=== PATIENT | male | born 1965 | race Caucasian/White ===

== ENCOUNTER 2021-08-26 23:35 | Observation (INO) | payer BC ==
[~2021-08-26] VITALS: Ht 182.9 cm; Wt 92.5 kg
[2021-08-26 23:56] LABS: BASO % 0 % (0-3); EOS # 0.1 x10^3/uL (0.0-0.7); EOS % 1 % (0-3); HEMATOCRIT 41.7 % (39.0-53.0); HEMOGLOBIN 14.2 g/dL (13.0-17.5); LYMPH # 1.7 x10^3/uL (1.0-4.8); LYMPH % 14 % (24-48); MEAN CORPUSCULAR HEMOGLOBIN 31 pg (25-35); MEAN CORPUSCULAR HGB CONC 34 g/dL (31-37); MEAN CORPUSCULAR VOLUME 91 fL (79-100); MONO # 0.8 x10^3/uL (0.0-1.1); MONO % 7 % (0-9); NEUT # 9.6 x10^3/uL (1.8-7.7); NEUT % 78 % (31-73); PLATELET COUNT 228 x10^3/uL (140-400); RED BLOOD COUNT 4.57 x10^6/uL (4.30-5.70); RED CELL DISTRIBUTION WIDTH 12.6 % (11.5-14.5); WHITE BLOOD COUNT 12.3 x10^3/uL (4.0-11.0)
[2021-08-27] VITALS (7 sets, daily range): BP systolic 103–148; BP diastolic 57–78
[2021-08-27] MEDS ORDERED: IV NORMAL SALINE 1000ML BAG 1,000 ML IV ONE
[2021-08-27] MEDS ORDERED: fentaNYL PF VIAL 100 MCG/2 ML VIAL IVP ONE
[2021-08-27] MEDS ORDERED: ONDANSETRON PF 4 MG/2 ML VIAL. IVP ONE
[2021-08-27 00:04] LABS: CALCIUM 8.3 mg/dL (8.5-10.1); CREATININE 1.2 mg/dL (0.7-1.3); GFR 62.9; POTASSIUM 3.4 mmol/L (3.5-5.1)
[2021-08-27 00:05] LABS: PROTHROMBIN TIME PATIENT 12.9 SEC (11.7-14.0)
[2021-08-27 00:11] LABS: ALBUMIN 3.4 g/dL (3.4-5.0); ALBUMIN/GLOBULIN RATIO 0.8 (1.0-1.7); TOTAL BILIRUBIN 0.4 mg/dL (0.2-1.0); TOTAL PROTEIN 7.6 g/dL (6.4-8.2)
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
[2021-08-27] MEDS ORDERED: CONTRAST GIVEN. MC PRN (00:30)
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
[2021-08-27] MEDS ORDERED: IOHEXOL 300 MG/ML 100ML VIAL. IV ONE (01:00)
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
[2021-08-27] MEDS ORDERED: ONDANSETRON PF 4 MG/2 ML VIAL. IVP PRN (01:30)
[2021-08-27] MEDS: IV NORMAL SALINE 1000ML BAG 1,000 ML IV SCH ×4 (04:40→22:03)
[2021-08-27] MEDS: MORPHINE SULFATE 2 MG/ML INJ. IVP PRN ×2 (07:30→11:35)
[2021-08-27] MEDS ORDERED: OMEP20CA16 PO (07:49)
--- NOTE | 2021-08-27 08:39 | PDOC2 ---
CONSULT Date of Consult Date of Consult DATE: 08/27/21 TIME: 08:33 Reason for Consult Reason for Consult: s/p [facility] [place] Referring Physician Referring Physician: Dr. Tapia Identification/Chief Complaint Chief Complaint left chest pain Source Source: Chart review, Patient History of Present Illness Reason for Visit: 56 yo M s/p [facility] [place]. Admitted for observation. C/o left chest pain. Past Medical History Psych: Addictions Past Surgical History Past Surgical History: No pertinent history Family History Family History: No Significant Social History ALCOHOL: heavy Current Problem List Problem List Problems Medical Problems: (1) Acute encephalopathy Status: Acute (2) Alcohol abuse Status: Acute (3) Contusion of rib on left side Status: Acute (4) Multiple abrasions Status: Acute (5) Pancreatitis Status: Acute Current Medications Current Medications Current Medications Ondansetron HCl (Zofran) 4 mg 1X ONCE IVP Last administered on 08/26/21at 23:52; Start 08/27/21 at 00:00; Stop 08/27/21 at 00:01; Status DC Sodium Chloride 1,000 ml @ 1,000 mls/hr 1X ONCE IV Last administered on 08/26/21at 23:51; Start 08/27/21 at 00:00; Stop 08/27/21 at 00:59; Status DC Fentanyl Citrate (Fentanyl 2ml Vial) 75 mcg 1X ONCE IVP Last administered on 08/26/21at 23:52; Start 08/27/21 at 00:00; Stop 08/27/21 at 00:01; Status DC Iohexol (Omnipaque 300 Mg/ml) 75 ml 1X ONCE IV ; Start 08/27/21 at 01:00; Stop 08/27/21 at 01:01; Status DC Info (CONTRAST GIVEN -- Rx MONITORING) 1 each PRN DAILY PRN MC SEE COMMENTS; Start 08/27/21 at 00:30; Stop 08/29/21 at 00:29 Ondansetron HCl (Zofran) 4 mg PRN Q8HRS PRN IVP NAUSEA/VOMITING 1ST CHOICE Last administered on 08/27/21at 07:30; Start 08/27/21 at 01:30; Stop 08/28/21 at 01:29 Morphine Sulfate (Morphine Sulfate) 2 mg PRN Q2HR PRN IVP SEVERE PAIN 7-10 Last administered on 08/27/21at 07:30; Start 08/27/21 at 01:30; Stop 08/28/21 at 01:29 Sodium Chloride 1,000 ml @ 150 mls/hr Q6H40M IV Last administered on 08/27/21at 04:40; Start 08/27/21 at 01:30; Stop 08/28/21 at 01:29 Active Scripts Active Reported Omeprazole 20 Mg Capsule.dr 20 Mg PO DAILY Allergies Allergies: Coded Allergies: No Known Drug Allergies (Unverified , 08/27/21) ROS Respiratory: YES: Pleuritic Pain Physical Exam General: Alert, Oriented X3, mild distress HEENT: EOMI, Other (left scalp hematoma) Lungs: Normal air movement, Other (mild TTP left chest, no obvious fracture) Abdomen: Soft, No tenderness Extremities: No clubbing, No cyanosis, Other (multiple areas of abrasions, intact sensation and movement.) Skin: No breakdown Neuro: Normal speech, Sensation intact Psych/Mental Status: Mental status NL, Mood NL Vitals VITALS Vital Signs Date Time Temp Pulse Resp B/P (MAP) Pulse Ox O2 Delivery O2 Flow Rate FiO2 08/27/21 03:00 97.6 74 20 103/60 (74) 91 Room Air 97.6 08/27/21 00:43 2.0 Labs Labs Laboratory Tests Test 08/26/21 23:45 White Blood Count 12.3 x10^3/uL (4.0-11.0) Red Blood Count 4.57 x10^6/uL (4.30-5.70) Hemoglobin 14.2 g/dL (13.0-17.5) Hematocrit 41.7 % (39.0-53.0) Mean Corpuscular Volume 91 fL (79-100) Mean Corpuscular Hemoglobin 31 pg (25-35) Mean Corpuscular Hemoglobin Concent 34 g/dL (31-37) Red Cell Distribution Width 12.6 % (11.5-14.5) Platelet Count 228 x10^3/uL (140-400) Neutrophils (%) (Auto) 78 % (31-73) Lymphocytes (%) (Auto) 14 % (24-48) Monocytes (%) (Auto) 7 % (0-9) Eosinophils (%) (Auto) 1 % (0-3) Basophils (%) (Auto) 0 % (0-3) Neutrophils # (Auto) 9.6 x10^3/uL (1.8-7.7) Lymphocytes # (Auto) 1.7 x10^3/uL (1.0-4.8) Monocytes # (Auto) 0.8 x10^3/uL (0.0-1.1) Eosinophils # (Auto) 0.1 x10^3/uL (0.0-0.7) Basophils # (Auto) 0.0 x10^3/uL (0.0-0.2) Prothrombin Time 12.9 SEC (11.7-14.0) Prothromb Time International Ratio 1.0 (0.8-1.1) Activated Partial Thromboplast Time 27 SEC (24-38) Sodium Level 135 mmol/L (136-145) Potassium Level 3.4 mmol/L (3.5-5.1) Chloride Level 99 mmol/L (98-107) Carbon Dioxide Level 27 mmol/L (21-32) Anion Gap 9 (6-14) Blood Urea Nitrogen 11 mg/dL (8-26) Creatinine 1.2 mg/dL (0.7-1.3) Estimated GFR (Cockcroft-Gault) 62.9 BUN/Creatinine Ratio 9 (6-20) Glucose Level 119 mg/dL (70-99) Calcium Level 8.3 mg/dL (8.5-10.1) Total Bilirubin 0.4 mg/dL (0.2-1.0) Aspartate Amino Transf (AST/SGOT) 28 U/L (15-37) Alanine Aminotransferase (ALT/SGPT) 34 U/L (16-63) Alkaline Phosphatase 90 U/L (46-116) Total Protein 7.6 g/dL (6.4-8.2) Albumin 3.4 g/dL (3.4-5.0) Albumin/Globulin Ratio 0.8 (1.0-1.7) Lipase 1613 U/L (73-393) Ethyl Alcohol Level 248 mg/dL (0-10) Laboratory Tests Test 08/26/21 23:45 White Blood Count 12.3 x10^3/uL (4.0-11.0) Red Blood Count 4.57 x10^6/uL (4.30-5.70) Hemoglobin 14.2 g/dL (13.0-17.5) Hematocrit 41.7 % (39.0-53.0) Mean Corpuscular Volume 91 fL (79-100) Mean Corpuscular Hemoglobin 31 pg (25-35) Mean Corpuscular Hemoglobin Concent 34 g/dL (31-37) Red Cell Distribution Width 12.6 % (11.5-14.5) Platelet Count 228 x10^3/uL (140-400) Neutrophils (%) (Auto) 78 % (31-73) Lymphocytes (%) (Auto) 14 % (24-48) Monocytes (%) (Auto) 7 % (0-9) Eosinophils (%) (Auto) 1 % (0-3) Basophils (%) (Auto) 0 % (0-3) Neutrophils # (Auto) 9.6 x10^3/uL (1.8-7.7) Lymphocytes # (Auto) 1.7 x10^3/uL (1.0-4.8) Monocytes # (Auto) 0.8 x10^3/uL (0.0-1.1) Eosinophils # (Auto) 0.1 x10^3/uL (0.0-0.7) Basophils # (Auto) 0.0 x10^3/uL (0.0-0.2) Prothrombin Time 12.9 SEC (11.7-14.0) Prothromb Time International Ratio 1.0 (0.8-1.1) Activated Partial Thromboplast Time 27 SEC (24-38) Sodium Level 135 mmol/L (136-145) Potassium Level 3.4 mmol/L (3.5-5.1) Chloride Level 99 mmol/L (98-107) Carbon Dioxide Level 27 mmol/L (21-32) Anion Gap 9 (6-14) Blood Urea Nitrogen 11 mg/dL (8-26) Creatinine 1.2 mg/dL (0.7-1.3) Estimated GFR (Cockcroft-Gault) 62.9 BUN/Creatinine Ratio 9 (6-20) Glucose Level 119 mg/dL (70-99) Calcium Level 8.3 mg/dL (8.5-10.1) Total Bilirubin 0.4 mg/dL (0.2-1.0) Aspartate Amino Transf (AST/SGOT) 28 U/L (15-37) Alanine Aminotransferase (ALT/SGPT) 34 U/L (16-63) Alkaline Phosphatase 90 U/L (46-116) Total Protein 7.6 g/dL (6.4-8.2) Albumin 3.4 g/dL (3.4-5.0) Albumin/Globulin Ratio 0.8 (1.0-1.7) Lipase 1613 U/L (73-393) Ethyl Alcohol Level 248 mg/dL (0-10) Images Images CT H/C/C/A/P without obvious acute concern Assessment/Plan Assessment/Plan left scalp hematoma, etoh intoxication, etoh pancreatitis ADAT and observation should be able to d/c home later today. Thanks for consult! GREYSON SKY MD Aug 27, 2021 08:39
[2021-08-27] MEDS ORDERED: HALOPERIDOL LACTATE 5 MG/ML VIAL. IVP PRN (11:00)
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
[2021-08-27] MEDS: PANTOPRAZOLE 40 MG TABLET.DR. PO SCH (11:35)
[2021-08-27] MEDS: MULTIVIT INFUSN,ADULT 4,VIT K 10 ML, THIAMINE INJ 100 MG, FOLIC ACID INJ 1 MG in IV NOR... IV SCH (12:06)
[2021-08-27] MEDS: LIDOCAINE (700MG/PATCH) PATCH. TD SCH (14:04)
[2021-08-27] MEDS: HYDROcodone/APAP 10/325 1 TAB TABLET PO PRN ×2 (14:04→20:27)
[2021-08-27 17:33] LABS: BARBITURATES NEG (NEG); BENZODIAZEPINES NEG (NEG); CANNABINOIDS NEG (NEG); COCAINE NEG (NEG); METHADONE NEG (NEG); PHENCYCLIDINE NEG (NEG)
[2021-08-27 17:38] LABS: AMPHETAMINE/METHAMPHETAMINE NEG (NEG)
[2021-08-27] MEDS ORDERED: PATCH REMOVAL. MC SCH (21:00)
[2021-08-27] MEDS ORDERED: GLYCERIN CHILD 1 SUPP.RECT. PR PRN (21:30)
[2021-08-27] MEDS: POLYETHYLENE GLYCOL 3350 17 GM PACKET. PO PRN (22:03)
[2021-08-28 03:00] VITALS: BP 119/69
[2021-08-28 07:00] VITALS: BP 128/75
[2021-08-28 07:00] LABS: BASO % 0 % (0-3); EOS # 0.1 x10^3/uL (0.0-0.7); EOS % 1 % (0-3); HEMOGLOBIN 13.2 g/dL (13.0-17.5); LYMPH % 22 % (24-48); MEAN CORPUSCULAR HEMOGLOBIN 31 pg (25-35); MEAN CORPUSCULAR HGB CONC 34 g/dL (31-37); MEAN CORPUSCULAR VOLUME 92 fL (79-100); MONO % 11 % (0-9); NEUT % 66 % (31-73); PLATELET COUNT 212 x10^3/uL (140-400); RED BLOOD COUNT 4.23 x10^6/uL (4.30-5.70); WHITE BLOOD COUNT 9.1 x10^3/uL (4.0-11.0)
[2021-08-28 07:32] LABS: ALBUMIN 2.7 g/dL (3.4-5.0); ALBUMIN/GLOBULIN RATIO 0.8 (1.0-1.7); CREATININE 1.1 mg/dL (0.7-1.3); GFR 69.5; POTASSIUM 3.6 mmol/L (3.5-5.1); TOTAL BILIRUBIN 0.6 mg/dL (0.2-1.0); TOTAL PROTEIN 6.2 g/dL (6.4-8.2)
[2021-08-28] MEDS: HYDROcodone/APAP 10/325 1 TAB TABLET PO PRN (08:41)
--- NOTE | 2021-08-28 08:41 | PDOC ---
SURGICAL PROGRESS NOTE DATE: 08/28/21 TIME: 08:37 Subjective ongoing left chest pain, can not cough due to pain no n/v reports constipation ROS: NO fevers or chills + SOA No palpations Vital Signs Vital Signs Date Time Temp Pulse Resp B/P (MAP) Pulse Ox O2 Delivery O2 Flow Rate FiO2 08/28/21 03:00 98.1 58 20 119/69 (86) 95 Room Air 98.1 I&O Intake and Output 08/28/21 07:00 Intake Total 2589 ml Balance 2589 ml Intake Oral 490 ml IV Total 2099 ml # Voids 3 General: Alert, Oriented X3, Cooperative HEENT: Other (left scalp hematoma ) Lungs: Other (diminished) Heart: Regular rate, Normal S1, Normal S2 Abdomen: Soft, Other (TTP left abd/chest ) Extremities: No clubbing, No cyanosis Skin: Other (abrasions, ) Labs Laboratory Tests Test 08/26/21 23:45 08/27/21 14:10 08/28/21 04:35 White Blood Count 12.3 x10^3/uL (4.0-11.0) 9.1 x10^3/uL (4.0-11.0) Red Blood Count 4.57 x10^6/uL (4.30-5.70) 4.23 x10^6/uL (4.30-5.70) Hemoglobin 14.2 g/dL (13.0-17.5) 13.2 g/dL (13.0-17.5) Hematocrit 41.7 % (39.0-53.0) 39.0 % (39.0-53.0) Mean Corpuscular Volume 91 fL (79-100) 92 fL (79-100) Mean Corpuscular Hemoglobin 31 pg (25-35) 31 pg (25-35) Mean Corpuscular Hemoglobin Concent 34 g/dL (31-37) 34 g/dL (31-37) Red Cell Distribution Width 12.6 % (11.5-14.5) 13.0 % (11.5-14.5) Platelet Count 228 x10^3/uL (140-400) 212 x10^3/uL (140-400) Neutrophils (%) (Auto) 78 % (31-73) 66 % (31-73) Lymphocytes (%) (Auto) 14 % (24-48) 22 % (24-48) Monocytes (%) (Auto) 7 % (0-9) 11 % (0-9) Eosinophils (%) (Auto) 1 % (0-3) 1 % (0-3) Basophils (%) (Auto) 0 % (0-3) 0 % (0-3) Neutrophils # (Auto) 9.6 x10^3/uL (1.8-7.7) 6.0 x10^3/uL (1.8-7.7) Lymphocytes # (Auto) 1.7 x10^3/uL (1.0-4.8) 2.0 x10^3/uL (1.0-4.8) Monocytes # (Auto) 0.8 x10^3/uL (0.0-1.1) 1.0 x10^3/uL (0.0-1.1) Eosinophils # (Auto) 0.1 x10^3/uL (0.0-0.7) 0.1 x10^3/uL (0.0-0.7) Basophils # (Auto) 0.0 x10^3/uL (0.0-0.2) 0.0 x10^3/uL (0.0-0.2) Prothrombin Time 12.9 SEC (11.7-14.0) Prothromb Time International Ratio 1.0 (0.8-1.1) Activated Partial Thromboplast Time 27 SEC (24-38) Sodium Level 135 mmol/L (136-145) 140 mmol/L (136-145) Potassium Level 3.4 mmol/L (3.5-5.1) 3.6 mmol/L (3.5-5.1) Chloride Level 99 mmol/L (98-107) 106 mmol/L (98-107) Carbon Dioxide Level 27 mmol/L (21-32) 26 mmol/L (21-32) Anion Gap 9 (6-14) 8 (6-14) Blood Urea Nitrogen 11 mg/dL (8-26) 11 mg/dL (8-26) Creatinine 1.2 mg/dL (0.7-1.3) 1.1 mg/dL (0.7-1.3) Estimated GFR (Cockcroft-Gault) 62.9 69.5 BUN/Creatinine Ratio 9 (6-20) 10 (6-20) Glucose Level 119 mg/dL (70-99) 84 mg/dL (70-99) Calcium Level 8.3 mg/dL (8.5-10.1) 8.0 mg/dL (8.5-10.1) Total Bilirubin 0.4 mg/dL (0.2-1.0) 0.6 mg/dL (0.2-1.0) Aspartate Amino Transf (AST/SGOT) 28 U/L (15-37) 24 U/L (15-37) Alanine Aminotransferase (ALT/SGPT) 34 U/L (16-63) 26 U/L (16-63) Alkaline Phosphatase 90 U/L (46-116) 71 U/L (46-116) Total Protein 7.6 g/dL (6.4-8.2) 6.2 g/dL (6.4-8.2) Albumin 3.4 g/dL (3.4-5.0) 2.7 g/dL (3.4-5.0) Albumin/Globulin Ratio 0.8 (1.0-1.7) 0.8 (1.0-1.7) Lipase 1613 U/L (73-393) 75 U/L (73-393) Ethyl Alcohol Level 248 mg/dL (0-10) Urine Opiates Screen (NEG) Urine Methadone Screen Neg (NEG) Urine Barbiturates Neg (NEG) Urine Phencyclidine Screen Neg (NEG) Urine Amphetamine/Methamphetamine Neg (NEG) Urine Benzodiazepines Screen Neg (NEG) Urine Cocaine Screen Neg (NEG) Urine Cannabinoids Screen Neg (NEG) Urine Ethyl Alcohol Pos (NEG) Laboratory Tests Test 08/27/21 14:10 08/28/21 04:35 Urine Opiates Screen (NEG) Urine Methadone Screen Neg (NEG) Urine Barbiturates Neg (NEG) Urine Phencyclidine Screen Neg (NEG) Urine Amphetamine/Methamphetamine Neg (NEG) Urine Benzodiazepines Screen Neg (NEG) Urine Cocaine Screen Neg (NEG) Urine Cannabinoids Screen Neg (NEG) Urine Ethyl Alcohol Pos (NEG) White Blood Count 9.1 x10^3/uL (4.0-11.0) Red Blood Count 4.23 x10^6/uL (4.30-5.70) Hemoglobin 13.2 g/dL (13.0-17.5) Hematocrit 39.0 % (39.0-53.0) Mean Corpuscular Volume 92 fL (79-100) Mean Corpuscular Hemoglobin 31 pg (25-35) Mean Corpuscular Hemoglobin Concent 34 g/dL (31-37) Red Cell Distribution Width 13.0 % (11.5-14.5) Platelet Count 212 x10^3/uL (140-400) Neutrophils (%) (Auto) 66 % (31-73) Lymphocytes (%) (Auto) 22 % (24-48) Monocytes (%) (Auto) 11 % (0-9) Eosinophils (%) (Auto) 1 % (0-3) Basophils (%) (Auto) 0 % (0-3) Neutrophils # (Auto) 6.0 x10^3/uL (1.8-7.7) Lymphocytes # (Auto) 2.0 x10^3/uL (1.0-4.8) Monocytes # (Auto) 1.0 x10^3/uL (0.0-1.1) Eosinophils # (Auto) 0.1 x10^3/uL (0.0-0.7) Basophils # (Auto) 0.0 x10^3/uL (0.0-0.2) Sodium Level 140 mmol/L (136-145) Potassium Level 3.6 mmol/L (3.5-5.1) Chloride Level 106 mmol/L (98-107) Carbon Dioxide Level 26 mmol/L (21-32) Anion Gap 8 (6-14) Blood Urea Nitrogen 11 mg/dL (8-26) Creatinine 1.1 mg/dL (0.7-1.3) Estimated GFR (Cockcroft-Gault) 69.5 BUN/Creatinine Ratio 10 (6-20) Glucose Level 84 mg/dL (70-99) Calcium Level 8.0 mg/dL (8.5-10.1) Total Bilirubin 0.6 mg/dL (0.2-1.0) Aspartate Amino Transf (AST/SGOT) 24 U/L (15-37) Alanine Aminotransferase (ALT/SGPT) 26 U/L (16-63) Alkaline Phosphatase 71 U/L (46-116) Total Protein 6.2 g/dL (6.4-8.2) Albumin 2.7 g/dL (3.4-5.0) Albumin/Globulin Ratio 0.8 (1.0-1.7) Lipase 75 U/L (73-393) Problem List Problems Medical Problems: (1) Acute encephalopathy Status: Acute (2) Alcohol abuse Status: Acute (3) Contusion of rib on left side Status: Acute (4) Multiple abrasions Status: Acute (5) Pancreatitis Status: Acute Assessment/Plan trauma, [facility] [place] chest pain, will check xr for FU lipase improving constipation, miralax ordered pain management Justicifation of Admission Dx: Justifications for Admission: Justification of Admission Dx: Yes Comments: TRAUMA, [facility] [place] 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
[2021-08-28] MEDS: POLYETHYLENE GLYCOL 3350 17 GM PACKET. PO PRN (08:42)
[2021-08-28] MEDS: PANTOPRAZOLE 40 MG TABLET.DR. PO SCH (08:42)
[2021-08-28] MEDS: LIDOCAINE (700MG/PATCH) PATCH. TD SCH (08:44)
--- NOTE | 2021-08-28 10:29 | RAD ---
XR RIBS MIN 3 VIEWS LT W/PA CHEST History: Reason: chest pain left upper anterior pain / Spl. Instructions: / History: Technique: PA view the chest additional views of the left ribs. Comparison: CT August 27, 2021 Findings: Linear bibasilar opacities, right greater than left. Low lung volumes. No pleural effusion. No pneumo thorax. Calcified left upper lung pulmonary nodule, likely prior granulomatous disease. Normal heart size. Acute left lateral fourth rib fracture. Impression: 1. Acute left lateral fourth rib fracture. 2. Bilateral linear opacities, likely atelectasis. Electronically signed by: Austyn Santiago DO (08/28/2021 10:27 AM) [id number]
[2021-08-28 11:00] VITALS: BP 133/70
[2021-08-28] MEDS: MULTIVIT INFUSN,ADULT 4,VIT K 10 ML, THIAMINE INJ 100 MG, FOLIC ACID INJ 1 MG in IV NOR... IV SCH (11:09)
[2021-08-28] MEDS ORDERED: OXYC1TAB22 PO (12:38)
[2021-08-28] MEDS ORDERED: LIDO700A21 TD (12:38)
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
--- NOTE | 2021-08-28 13:07 | NUR ---
Pt. discharged to home with Rx sent to pharmacy. Verbalized understanding of discharge instructions. Pt. refused d/c pics of abrasions.
[2021-08-28] MEDS ORDERED: MAGNESIUM CITRATE 296 ML SOLUTION. PO ONE (13:30)
--- NOTE | 2021-08-28 16:16 | NUR ---
Wound Care Pt discharged prior to WC team arrival
[2021-09-01] MEDS ORDERED: MULTIVITAMIN with MINERAL TABLET. PO SCH (09:00)
[2021-09-01] MEDS ORDERED: FOLIC ACID 1 MG TABLET. PO SCH (09:00)
[2021-09-01] MEDS ORDERED: THIAMINE 100 MG TABLET. PO SCH (09:00)
== END 2021-08-28 13:12 | disposition home or self-care (01) ==
LOC: ER 23:35 → 4 NORTH 08-27 01:20
PROVIDERS: ADMIT Internal Medicine; ATTEND Internal Medicine
DX: S22.32XA Fracture of one rib, left side, initial encounter for closed fracture (principal); S00.03XA Contusion of scalp, initial encounter; G93.40 Encephalopathy, unspecified; S20.212A Contusion of left front wall of thorax, initial encounter; T14.8XXA Other injury of unspecified body region, initial encounter; F10.129 Alcohol abuse with intoxication, unspecified; K85.90 Acute pancreatitis without necrosis or infection, unspecified; K85.20 Alcohol induced acute pancreatitis without necrosis or infection; K59.00 Constipation, unspecified; Z79.899 Other long term (current) drug therapy; Z98.890 Other specified postprocedural states; F17.200 Nicotine dependence, unspecified, uncomplicated; V29.9XXA Motorcycle rider (driver) (passenger) injured in unspecified traffic accident, initial encounter; Y93.89 Activity, other specified; Y92.89 Other specified places as the place of occurrence of the external cause; Y99.8 Other external cause status
CPT/HCPCS: 36415; 70450; 71101; 71260; 72125; 74177; 80053; 80307; 83690; 85025; 85610; 85730; 96361; 96365; 96366; 96375; 96376; 99285; G0378; G0480; J2270; J2405; J3010; J3411; J3490; J7030; G0379